=== PATIENT | male | born 2000 | race Caucasian/White ===

== ENCOUNTER 2023-01-22 12:59 | Outpatient (CLI) | payer MEDICAID, SELFPAY ==
[2023-01-22 13:31] LABS: Hematocrit 37.1 % (42.0-52.0); Hemoglobin 12.2 g/dL (14.0-18.0); Mean Corpuscular HGB Conc 32.9 g/dl (32-36); Mean Corpuscular Hemoglobin 29.4 pg (26-34); Mean Corpuscular Volume 89.4 fl (80-100); Mean Platelet Volume 8.9 fl (7.4-10.4); Platelet Count Result 320 k/mm3 (150-375); Red Blood Count 4.15 M/mm3 (4.6-6.20); Red Cell Distribution Width 12.5 % (11.5-14.5); White Blood Count 8.4 K/mm3 (4.5-10.0)
[2023-01-22 13:51] LABS: Iron 23 ug/dL (49-181)
[2023-01-22 13:53] LABS: Alanine Aminotransferase 30 U/L (6-50); Albumin Level 4.3 g/dL (3.5-5.1); Alkaline Phosphatase 73 U/L (38-126); Anion Gap 8 mmol/L (8-16); Aspartate Amino Transferase 30 U/L (17-59); Bilirubin,Total 0.3 mg/dL (0.2-1.3); Blood Urea Nitrogen 9 mg/dL (9-20); Calcium 8.8 mg/dL (8.4-10.2); Carbon Dioxide 29 mmol/L (22-30); Chloride 101 mmol/L (98-107); Estimated Glomerular Filt Rate > 60; Glucose 135 mg/dL (65-110); Potassium 3.9 mmol/L (3.4-5.0); Sodium 138 mmol/L (137-145)
[2023-01-22 13:55] LABS: CRP 2.8 mg/dL (<1.0)
[2023-01-22 13:59] LABS: Percent Iron Saturation 7 % (20-50)
[2023-01-22 14:21] LABS: Hepatitis B Surface Antigen Negative (Negative)
[2023-01-22 14:27] LABS: HAV RESULT Negative (Negative); Hepatitis B Core IgM Result Negative (Negative)
[2023-01-22 14:39] LABS: Hepatitis B Surface Anti Res Negative; Hepatitis C Virus Antibody Negative (Negative)
[2023-01-22 14:39] LABS: Toxigenic C. Diff NEGATIVE (NEGATIVE)
[2023-01-22 14:41] LABS: Erythrocyte Sedimentation Rate 48 mm/hr (0-20)
[2023-01-26 12:24] LABS: NIL 0.01 IU/mL; Quantiferon TB Plus, 1T NEGATIVE (NEGATIVE)
[2023-01-26 13:18] LABS: Hepatitis A Antibody Total Nonreactive (Nonreactive)
[2023-01-26 15:39] LABS: Vitamin D 1,25 (OH)2 Total 52 pg/mL (18-72); Vitamin D2 1,25 (OH)2 <8 pg/mL; Vitamin D3 1,25 (OH)2 52 pg/mL
[2023-01-30 20:32] LABS: Calprotectin, Stool 5620 mcg/g
== END 2023-01-22 13:00 | disposition home or self-care (01) ==
PROVIDERS: PCP Family Medicine; Visit Provider Nurse Practitioner
DX: K51.90 Ulcerative colitis, unspecified, without complications (principal)
CPT/HCPCS: 36415; 80053; 80074; 82652; 82728; 83540; 83550; 83993; 85027; 85652; 86140; 86480; 86706; 86708; 87340; 87493

== ENCOUNTER 2023-05-14 03:08 | Day surgery (SDC) | payer OTHER, SELFPAY ==
[2023-05-05 14:01] VITALS: BMI 22.8
--- NOTE | 2023-05-14 08:13 | WPDANESEPPF ---
Anes - Initial Pre Proc Eval Procedure: Operation Date: 05/14/23 13:15 Proposed Procedures p Colonoscopy - Candido Bhakta MD Date/Time: 05/14/23 08:13 Surgeon: Candido Bhakta MD Pre Op Diagnosis: ulcerative colitis Patient Data Age: 22 Gender: M Height: 1.73 m Weight: 68.2 kg Allergies Allergy/AdvReac Type Severity Reaction Status Date / Time No Known Allergies Allergy Verified 05/06/23 14:47 Home Medications Medication Instructions Recorded Confirmed Type finasteride 1 mg tablet 1 mg PO DAILY 01/11/23 05/06/23 History ferrous gluconate 324 mg (37.5 mg 324 mg PO BID #60 tabs 03/04/23 05/06/23 Rx iron) tablet fluticasone propionate 50 2 spray intranasal DAILY 04/14/23 05/06/23 History mcg/actuation nasal spray,suspension (Children's Flonase Allergy Relief) mesalamine 500 mg capsule,extended 500 mg PO DIRECTED 05/06/23 05/06/23 History release (Pentasa) Patient hx anesthesia problems: none Family hx anesthesia problems: none Results Review: All pre-operative results and documents have been reviewed as part of the pre-operative evaluation. [facility] Past Medical History Medical History Hair loss RONNIE (iron deficiency anemia) Seasonal allergies Ulcerative colitis Family History Family History Father Asthma Diabetes mellitus Depression Heart disease Mother Depression Grandparent Depression Cancer Social History Social History Smoking status: Never smoker Alcohol intake: never Substance use: current Substance use type: marijuana Other substance usage details: smokes daily Lack of Transportation: No Lack of Food: Never True Current Housing: I Have Housing Concerned About Future Housing: No Difficulty Paying Gas/Electric Bills: No Difficulty Paying for Meds: No Currently Unemployed: No Education: Associate Degree Difficulty w/ Childcare or Family Care: No Living arrangements: with roommate(s) Occupation/Education: student 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[employer] Gender identity (if verbalized by the patient): Male Spiritual care concerns: No Agree to blood products: Yes Anes - Eval Final PreProcedure Day of Procedure 05/14/23 08:13 Patient weight: normal Heart: regular rate and rhythm Lungs: clear to auscultation and normal air movement Airway: Mallampati scale class II Neurological: alert and oriented Last oral intake: >/= 8 hours ASA classification: II Emergent: no Anesthetic plan: proceed Anesthesia type and monitoring: general GIVS Results Review: All pre-operative results and documents have been reviewed as part of the pre-operative evaluation. Informed Consent: The patient's anesthetic plan and its attendant risks and benefits were discussed with the patient/family/POA. Questions were solicited and answers provided to the satisfaction of the patient/family/POA.
[2023-05-14 10:36] VITALS: BP 116/96; PULSE 110; RESP 18; TEMP 36.3; O2SAT 100; BMI 21.5
[2023-05-14] MEDS: LACTATED RINGERS 1,000 ML 150 ML IV CONT (10:42)
--- NOTE | 2023-05-14 11:13 | PM.HPGS ---
History of Present Illness History of Present Illness Consent: Risks, benefits, and alternatives have been discussed and questions answered. Patient agrees to proceed with procedure. Chief complaint: ulcerative colitis Narrative: Nahid Brice is a 22 year old male diagnosed with left sided UC 2021, treated with steroids and canasa supp, now only on pentasa and doing better. Review of Systems Constitutional: Constitutional: Denies headache(s) and Denies weakness Eyes: Eyes: Denies blurry vision ENT: Reports Normal hearing present, Denies headache(s) and Denies neck pain Cardiovascular: Cardiovascular: Denies chest pain and Denies dyspnea Respiratory: Respiratory: Denies dyspnea Gastrointestinal: Gastrointestinal: Reports no additional gastrointestinal complaints Genitourinary: Genitourinary: Denies dysuria Musculoskeletal: Musculoskeletal: Denies neck pain Integumentary/Breasts: Skin/Breast: Denies dry skin Neurologic: Reports Normal hearing present, Denies headache(s) and Denies weakness Psychiatric: Psychiatric: Denies anxiety Endocrine: Endocrine: Denies change in body appearance Hematologic/Lymphatic: Hematologic/Lymphatic: Denies easy bleeding Allergic/Immunologic: Allergic/Immunologic: Denies urticaria PMFSH Past Medical History Medical History Hair loss RONNIE (iron deficiency anemia) Seasonal allergies Ulcerative colitis Family History Family History Father Asthma Diabetes mellitus Depression Heart disease Mother Depression Grandparent Depression Cancer Social History Social History Smoking status: Never smoker Alcohol intake: never Substance use: current Substance use type: marijuana Other substance usage details: smokes daily Lack of Transportation: No Lack of Food: Never True Current Housing: I Have Housing Concerned About Future Housing: No Difficulty Paying Gas/Electric Bills: No Difficulty Paying for Meds: No Currently Unemployed: No Education: Associate Degree Difficulty w/ Childcare or Family Care: No Living arrangements: with roommate(s) Occupation/Education: student 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 Gender identity (if verbalized by the patient): Male Spiritual care concerns: No Agree to blood products: Yes Meds Home Medications and Allergies Home Medications Medication Instructions Recorded Confirmed Type finasteride 1 mg tablet 1 mg PO DAILY 01/11/23 05/14/23 History ferrous gluconate 324 mg (37.5 mg 324 mg PO BID #60 tabs 03/04/23 05/14/23 Rx iron) tablet fluticasone propionate 50 2 spray intranasal DAILY 04/14/23 05/14/23 History mcg/actuation nasal spray,suspension (Children's Flonase Allergy Relief) mesalamine 500 mg capsule,extended 500 mg PO DIRECTED 05/06/23 05/14/23 History release (Pentasa) Allergies Allergy/AdvReac Type Severity Reaction Status Date / Time No Known Allergies Allergy Verified 05/14/23 10:34 Vital Signs Vital Signs - 24 hr 05/14/23 10:36 Temperature 97.4 F L Pulse Rate 110 H Respiratory Rate 18 Blood Pressure 116/96 H Pulse Oximetry 100 Oxygen Delivery Room Air Exam Const: General: comfortable and no acute distress HENMT: Face/Nose/Sinus: Normal nares present Eyes: General: appearance normal, both eyes and all related structures Neck: Neck: no JVD Resp: Auscultation: clear to auscultation bilaterally Cardio: Rate: regular rate Rhythm: regular rhythm GI: Inspection: non-distended GI Palp: Yes Soft to palpation Skin: General skin exam: normal color Neuro: General: gait normal Speech: normal speech Extrem: General: normal to inspection Psych: Mental Status: mental status grossly normal Assessment and Plan Assessment and p
[2023-05-14 11:33] VITALS: BP 99/61; PULSE 104; RESP 24; O2SAT 98
[2023-05-14 11:43] VITALS: BP 104/62; PULSE 92; RESP 21; O2SAT 98
[2023-05-14 11:53] VITALS: BP 113/72; PULSE 87; RESP 19; O2SAT 99
== END 2023-05-14 12:07 | disposition home or self-care (01) ==
PROVIDERS: PCP Family Medicine; Visit Provider Internal Medicine Gastroenterology
PROC: 0DJD8ZZ Inspection of Lower Intestinal Tract, Via Natural or Artificial Opening Endoscopic (ICD-10-PCS; CPT 45378; principal; 2023-05-14 13:15)
DX: K51.90 Ulcerative colitis, unspecified, without complications (principal); K64.8 Other hemorrhoids; D50.9 Iron deficiency anemia, unspecified; F12.90 Cannabis use, unspecified, uncomplicated
CPT/HCPCS: 45380; 88305; J2704; J7120

== ENCOUNTER 2023-05-17 12:47 | Outpatient (CLI) | payer OTHER, SELFPAY ==
[2023-05-17 13:23] LABS: Hematocrit 42.9 % (42.0-52.0); Hemoglobin 14.3 g/dL (14.0-18.0); Mean Corpuscular HGB Conc 33.3 g/dl (32-36); Mean Corpuscular Hemoglobin 29.1 pg (26-34); Mean Corpuscular Volume 87.4 fl (80-100); Mean Platelet Volume 9.5 fl (7.4-10.4); Platelet Count Result 245 k/mm3 (150-375); Red Blood Count 4.91 M/mm3 (4.6-6.20); Red Cell Distribution Width 13.6 % (11.5-14.5)
[2023-05-17 13:37] LABS: Iron 124 ug/dL (49-181)
[2023-05-17 13:41] LABS: CRP 0.5 mg/dL (<1.0)
[2023-05-17 13:46] LABS: Percent Iron Saturation 36 % (20-50)
[2023-05-17 14:07] LABS: Erythrocyte Sedimentation Rate 17 mm/hr (0-20)
== END 2023-05-17 12:48 | disposition home or self-care (01) ==
PROVIDERS: PCP Family Medicine; Visit Provider Nurse Practitioner Family
DX: K51.90 Ulcerative colitis, unspecified, without complications (principal); D50.9 Iron deficiency anemia, unspecified
CPT/HCPCS: 36415; 82728; 83540; 83550; 85027; 85652; 86140

== ENCOUNTER 2023-11-08 12:53 | Emergency (ER) | payer OTHER, SELFPAY ==
[2023-11-08] VITALS (7 sets, daily range): BP systolic 120–135; BP diastolic 69–93; PULSE 71–102; RESP 14–17; TEMP 36.4; O2SAT 97–100
--- NOTE | ~2023-11-08 | CT_ITS ---
EXAMINATION: CT abdomen pelvis w con INDICATION: Loose bloody stools, abdominal pain TECHNIQUE: Computed tomographic images of the abdomen and pelvis were obtained after the administrati on of 100 cc of Omnipaque 350 intravenous contrast. The dose-length product (DLP) was 304.22 mGy-cm. Automated exposure control and iterative reconstruction technique were employed. COMPARISON: None available FINDINGS: The lung bases are clear. The heart size is normal. The liver, spleen, pancreas, gallbladde r, and adrenal glands are normal. The kidneys are unremarkable. There is mild right lower quadrant ly mphadenopathy. No free intraperitoneal gas or evidence of bowel obstruction. The appendix is normal. There is mild wall thickening of the sigmoid colon. The visualized osseous structures are unremarkabl e. IMPRESSION: 1. Mild wall thickening of the sigmoid colon which could be due to incomplete distention or less like ly mild colitis. 2. Mild right lower quadrant lymphadenopathy, likely reactive. Reviewed, dictated and finalized at location B. ERCIAL FIELD INSPECTOR IMPRESSION: 1. Mild wall thickening of the sigmoid colon which could be due to incomplete d istention or less likely mild colitis. 2. Mild right lower quadrant lymphadenopathy, likely reactive.
[2023-11-08 13:15] LABS: Basophils Absolute Auto 0.1 K/mm3 (0.0-0.1); Basophils Percent Auto 0.7 % (0.2-1.2); Eosinophils Absolute Auto 0.4 K/mm3 (0-0.3); Eosinophils Percent Auto 5.7 % (0-4.4); Hematocrit 43.7 % (42.0-52.0); Hemoglobin 14.4 g/dL (14.0-18.0); Immature Granulocyte Absolute 0.01 K/mm3 (0.00-0.031); Immature Granulocyte Percent A 0.1 % (0-0.5); Lymphocytes Absolute Auto 2.33 K/mm3 (0.9-3.2); Lymphocytes Percent Auto 32.2 % (18.3-44.2); Mean Corpuscular Hemoglobin 29.5 pg (26-34); Mean Corpuscular Volume 89.5 fl (80-100); Mean Platelet Volume 9.6 fl (7.4-10.4); Monocytes Absolute Auto 1.4 K/mm3 (0.1-0.6); Monocytes Percent Auto 19.8 % (2.6-8.5); Neutrophils Percent Auto 41.5 % (45.5-73.1); Platelet Count Result 224 k/mm3 (150-375); Red Blood Count 4.88 M/mm3 (4.6-6.20); Red Cell Distribution Width 12.9 % (11.5-14.5); White Blood Count 7.2 K/mm3 (4.5-10.0)
[2023-11-08 13:23] LABS: Alanine Aminotransferase 20 U/L (6-50); Albumin Level 4.7 g/dL (3.5-5.1); Alkaline Phosphatase 71 U/L (38-126); Anion Gap 8 mmol/L (8-16); Aspartate Amino Transferase 21 U/L (17-59); Bilirubin,Total 0.6 mg/dL (0.2-1.3); Blood Urea Nitrogen 11 mg/dL (9-20); Calcium 9.4 mg/dL (8.4-10.2); Carbon Dioxide 25 mmol/L (22-30); Chloride 106 mmol/L (98-107); Estimated CRCL calculation 106 ml/min; Estimated Glomerular Filt Rate > 60; Glucose 90 mg/dL (65-110); Potassium 4.1 mmol/L (3.4-5.0); Sodium 139 mmol/L (137-145)
[2023-11-08 13:25] LABS: Prothrombin Time 13.7 Seconds (11.1-14.7)
[2023-11-08 13:26] LABS: Partial Thromboplastin Time 30.6 SECONDS (22.3-36.8)
--- NOTE | 2023-11-08 13:34 | ED.GIBLEED ---
HPI - GI Bleed General Chief complaint: GI Bleed Stated complaint: BLOOD IN STOOL Time Seen by Provider: 11/08/23 13:23 Source: patient Mode of arrival: ambulatory Limitations: no limitations History of Present Illness HPI Narrative: This is a 22 year old male that presents to the ER for abdominal pain and diarrhea. Ongoing over the last couple of days. Reports seeing blood in the stool since yesterday. History of UC, was concerned he was having a flare. His GI doctor is Dr. Grover. Denies fevers or vomiting. Related Data Home Medications Medication Instructions Recorded Confirmed finasteride 1 mg tablet 1 mg PO DAILY 01/11/23 05/18/23 fluticasone propionate 50 2 spray intranasal DAILY 04/14/23 05/18/23 mcg/actuation nasal spray,suspension (Children's Flonase Allergy Relief) Allergies Allergy/AdvReac Type Severity Reaction Status Date / Time No Known Allergies Allergy Verified 11/08/23 13:24 Review of Systems Review of Systems: CONSTITUTIONAL: Denies fever GASTROINTESTINAL: Reports abdominal pain, and diarrhea. GENITOURINARY: Denies dysuria All systems reviewed & are unremarkable except as noted in HPI and below PMFSH Past Medical History Medical History Hair loss RONNIE (iron deficiency anemia) Seasonal allergies Ulcerative colitis Family History Family History Father Asthma Diabetes mellitus Depression Heart disease Mother Depression Grandparent Depression Cancer Social History Social History Smoking status: Never smoker Alcohol intake: never Substance use: current Substance use type: marijuana Other substance usage details: smokes daily Lack of Transportation: No Lack of Food: Never True Current Housing: I Have Housing Concerned About Future Housing: No Difficulty Paying Gas/Electric Bills: No Difficulty Paying for Meds: No Currently Unemployed: No Education: Associate Degree Difficulty w/ Childcare or Family Care: No Living arrangements: with roommate(s) Occupation/Education: student 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 HEAD: Normocephalic, atraumatic. EYES: EOMI. CHEST: Clear to auscultation. No respiratory distress. No wheezes rales or rhonchi HEART: Regular rate and rhythm. No murmur heard. Normal peripheral pulses. ABDOMEN: Soft, nondistended, normal active bowel sounds. Mild tenderness to palpation throughout the abdomen, without guarding EXTREMITIES: Normal range of motion. No edema. SKIN: Warm, dry, no rash. NEURO: No focal deficits. Alert and oriented x3. PSYCH: Normal mood and affect Course Course Emergency Course: Patient updated on workup and agrees with plan of care Consultations Consultation #1: Spoke with Dr. Grover about patient and workup who recommends Flagyl for 5 days along with Prednisone taper over the next couple of weeks. Date: 11/08/23 Vital Signs Vital signs: Vital Signs Temperature 97.6 F 11/08/23 12:56 Pulse Rate 87 11/08/23 12:56 Respiratory Rate 16 11/08/23 12:56 Blood Pressure 131/74 11/08/23 12:56 Pulse Oximetry 100 11/08/23 12:56 Temperature 97.6 F 11/08/23 12:56 Pulse Rate 71 11/08/23 14:24 Respiratory Rate 14 11/08/23 14:24 Blood Pressure 120/76 11/08/23 14:24 Pulse Oximetry 99 11/08/23 14:24 MDM - GI Bleed MDM Narrative Medical decision making narrative: Patient presents to the emergency department for abdominal pain and bloody diarrhea. History of ulcerative colitis. He is afebrile and nontoxic appearing. Cbc without leukocytosis. Metabol
[2023-11-08] MEDS: SODIUM CHLORIDE 0.9% IV 1,000 ML 999 ML IV CONT (13:48)
--- NOTE | 2023-11-08 14:25 | PC.NURSE ---
Pt to CT scan via stretcher at this time.
== END 2023-11-08 15:55 | disposition home or self-care (01) ==
PROVIDERS: Emergency Medicine; Emergency Provider Physician Assistant; PCP Family Medicine
DX: K52.9 Noninfective gastroenteritis and colitis, unspecified (principal)
CPT/HCPCS: 36415; 74177; 80053; 85025; 85610; 85730; 86850; 86900; 86901; 96360; 99284; J7030; Q9967

== ENCOUNTER 2023-11-12 09:01 | Emergency (ER) | payer OTHER, SELFPAY ==
[2023-11-12 09:03] VITALS: BP 146/87; PULSE 95; RESP 18; TEMP 36.4; O2SAT 100
[2023-11-12 09:20] VITALS: BP 129/81; PULSE 81; RESP 11; O2SAT 98
--- NOTE | 2023-11-12 09:38 | ED.GENADULT ---
HPI - General Adult General Chief complaint: GI Bleed Stated complaint: diarrhea and blood in stool Time Seen by Provider: 11/12/23 09:08 Source: patient Mode of arrival: ambulatory Limitations: no limitations History of Present Illness HPI narrative: this is a 22-year-old male with PMH of UC presents to the chief complaint diarrhea and rectal bleeding x5 days. Reports bright red blood per rectum. Reports he was seen here at the initial onset but symptoms have gradually worsened since then as he is having a more frequency of diarrhea and more frequency of bloody stools. reports having 8-9 bouts of diarrhea per day. Denies melena or dark tarry stools. Denies abdominal pain, vomiting, nausea, fevers, chills, urinary symptoms, chest pain, shortness of breath. Follows with Dr. Bhakta and has been taking his regular Humira, sulfasalazine. He was prescribed metronidazole, prednisone taper on Wednesday and has been taking those as prescribed. Related Data Home Medications Medication Instructions Recorded Confirmed finasteride 1 mg tablet 1 mg PO DAILY 01/11/23 05/18/23 fluticasone propionate 50 2 spray intranasal DAILY 04/14/23 05/18/23 mcg/actuation nasal spray,suspension (Children's Flonase Allergy Relief) Allergies Allergy/AdvReac Type Severity Reaction Status Date / Time No Known Allergies Allergy Verified 11/12/23 09:18 Review of Systems Review of Systems: All systems as dictated in [facility] Past Medical History Medical History Hair loss RONNIE (iron deficiency anemia) Seasonal allergies Ulcerative colitis Family History Family History Father Asthma Diabetes mellitus Depression Heart disease Mother Depression Grandparent Depression Cancer Social History Social History Smoking status: Never smoker Alcohol intake: never Substance use: current Substance use type: marijuana Other substance usage details: smokes daily Lack of Transportation: No Lack of Food: Never True Current Housing: I Have Housing Concerned About Future Housing: No Difficulty Paying Gas/Electric Bills: No Difficulty Paying for Meds: No Currently Unemployed: No Education: Associate Degree Difficulty w/ Childcare or Family Care: No Living arrangements: with roommate(s) Occupation/Education: student 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 HEAD: Normocephalic, atraumatic. EYES: PERRLA and EOMI. ENT: Nares clear, no rhinorrhea or epistaxis. Mucous membranes moist. Oropharynx without tonsillar hypertrophy exudate or other lesions. NECK: Supple. No adenopathy or masses. CHEST: No respiratory distress. Clear to auscultation. No wheezes rales or rhonchi HEART: Regular rate and rhythm. No murmur heard. Normal peripheral pulses. ABDOMEN: Soft, nontender, nondistended, normal active bowel sounds. MSK: Normal range of motion. No edema. SKIN: Warm, dry, no rash. NEURO: Alert and oriented x3. No focal deficits. PSYCH: Normal mood and affect. Course Vital Signs Vital signs: Vital Signs Temperature 97.6 F 11/12/23 09:03 Pulse Rate 95 11/12/23 09:03 Respiratory Rate 18 11/12/23 09:03 Blood Pressure 146/87 H 11/12/23 09:03 Pulse Oximetry 100 11/12/23 09:03 Oxygen Delivery Room Air 11/12/23 09:03 Temperature 97.6 F 11/12/23 09:03 Pulse Rate 76 11/12/23 10:43 Respiratory Rate 14 11/12/23 10:43 Blood Pressure 130/82 11/12/23 10:43 Pulse Oximetry 99 11/12/23 10:43 Oxygen Delivery Room Air 11/12/23 09:03 Medical Decision Andreas
[2023-11-12 10:00] VITALS: BP 114/79; PULSE 76; RESP 13; O2SAT 99
[2023-11-12 10:07] LABS: Basophils Absolute Auto 0.1 K/mm3 (0.0-0.1); Basophils Percent Auto 0.6 % (0.2-1.2); Eosinophils Absolute Auto 0.2 K/mm3 (0-0.3); Eosinophils Percent Auto 2.4 % (0-4.4); Hematocrit 42.3 % (42.0-52.0); Hemoglobin 14.3 g/dL (14.0-18.0); Immature Granulocyte Absolute 0.04 K/mm3 (0.00-0.031); Immature Granulocyte Percent A 0.5 % (0-0.5); Lymphocytes Absolute Auto 2.59 K/mm3 (0.9-3.2); Lymphocytes Percent Auto 29.9 % (18.3-44.2); Mean Corpuscular HGB Conc 33.8 g/dl (32-36); Mean Corpuscular Hemoglobin 29.7 pg (26-34); Mean Corpuscular Volume 87.8 fl (80-100); Mean Platelet Volume 9.3 fl (7.4-10.4); Monocytes Absolute Auto 1.7 K/mm3 (0.1-0.6); Monocytes Percent Auto 19.6 % (2.6-8.5); Neutrophils Absolute Auto 4.1 K/mm3 (1.3-6.7); Platelet Count Result 246 k/mm3 (150-375); Red Blood Count 4.82 M/mm3 (4.6-6.20); Red Cell Distribution Width 12.8 % (11.5-14.5); White Blood Count 8.7 K/mm3 (4.5-10.0)
[2023-11-12 10:18] LABS: Prothrombin Time 14.1 Seconds (11.1-14.7)
[2023-11-12 10:19] LABS: Partial Thromboplastin Time 27.8 SECONDS (22.3-36.8)
[2023-11-12 10:20] LABS: Alanine Aminotransferase 20 U/L (6-50); Albumin Level 4.4 g/dL (3.5-5.1); Alkaline Phosphatase 56 U/L (38-126); Anion Gap 9 mmol/L (8-16); Aspartate Amino Transferase 26 U/L (17-59); Bilirubin,Total 0.3 mg/dL (0.2-1.3); Blood Urea Nitrogen 16 mg/dL (9-20); Calcium 9.3 mg/dL (8.4-10.2); Carbon Dioxide 27 mmol/L (22-30); Chloride 102 mmol/L (98-107); Estimated CRCL calculation 109 ml/min; Estimated Glomerular Filt Rate > 60; Glucose 97 mg/dL (65-110); Lactic Acid Reflex 1.4 mmol/L (0.7-2.0); Lipase 63 U/L (23-300); Potassium 3.5 mmol/L (3.4-5.0); Sodium 138 mmol/L (137-145)
[2023-11-12 10:24] VITALS: BP 140/86; PULSE 75; RESP 15; O2SAT 100
[2023-11-12 10:43] VITALS: BP 130/82; PULSE 76; RESP 14; O2SAT 99
[2023-11-12] MEDS: methylPREDNISolone SOD SUCC 40 MG VIAL IV PUSH (10:43)
== END 2023-11-12 10:52 | disposition home or self-care (01) ==
PROVIDERS: Emergency Provider Physician Assistant; PCP Family Medicine
DX: K51.90 Ulcerative colitis, unspecified, without complications (principal)
CPT/HCPCS: 36415; 80053; 83605; 83690; 85025; 85610; 85730; 96374; 99284; J2920

== ENCOUNTER 2024-07-14 13:56 | Outpatient (CLI) | payer BC, SELFPAY ==
[2024-07-14 14:33] LABS: Hematocrit 43.3 % (42.0-52.0); Hemoglobin 14.5 g/dL (14.0-18.0); Mean Corpuscular HGB Conc 33.5 g/dl (32-36); Mean Corpuscular Volume 92.5 fl (80-100); Platelet Count Result 324 k/mm3 (150-375); Red Blood Count 4.68 M/mm3 (4.6-6.20); Red Cell Distribution Width 13.2 % (11.5-14.5); White Blood Count 8.8 K/mm3 (4.5-10.0)
[2024-07-14 14:45] LABS: Alanine Aminotransferase 28 U/L (6-50); Albumin Level 4.6 g/dL (3.5-5.1); Alkaline Phosphatase 42 U/L (38-126); Anion Gap 8 mmol/L (4-12); Aspartate Amino Transferase 28 U/L (17-59); Bilirubin,Total 0.2 mg/dL (0.2-1.3); Blood Urea Nitrogen 13 mg/dL (9-20); Calcium 9.1 mg/dL (8.4-10.2); Carbon Dioxide 31 mmol/L (22-30); Chloride 98 mmol/L (98-107); Cholesterol 189 mg/dL (0-200); Estimated Glomerular Filt Rate > 60; Glucose 94 mg/dL (65-110); HDL Direct 56 mg/dL; Sodium 137 mmol/L (137-145); Triglycerides 157 mg/dL (<150)
[2024-07-14 14:58] LABS: LDL Cholesterol Direct 105 mg/dL
[2024-07-14 15:16] LABS: Thyroid Stimulating Hormone 0.514 uIU/mL (0.465-4.680)
[2024-07-14 15:34] LABS: Iron 69 ug/dL (49-181)
[2024-07-14 15:43] LABS: Percent Iron Saturation 22 % (20-50)
[2024-07-14 16:46] LABS: Vitamin D 25 Hydroxy < 12.8 ng/mL
[2024-07-20 11:19] LABS: NIL 0.03 IU/mL; Quantiferon TB Plus, 1T NEGATIVE (NEGATIVE); TB1-NIL <0.00 IU/mL; TB2-NIL <0.00 IU/mL
== END 2024-07-14 13:57 | disposition home or self-care (01) ==
PROVIDERS: Nurse Practitioner; PCP Family Medicine; Visit Provider Nurse Practitioner
DX: Z00.00 Encounter for general adult medical examination without abnormal findings (principal); E55.9 Vitamin D deficiency, unspecified; D50.9 Iron deficiency anemia, unspecified; K51.90 Ulcerative colitis, unspecified, without complications
CPT/HCPCS: 36415; 80053; 80061; 82306; 83540; 83550; 84443; 85027; 86480

== ENCOUNTER 2024-12-08 01:18 | Day surgery (SDC) | payer BC, SELFPAY ==
[2024-11-16 13:53] VITALS: BMI 27.4
[2024-12-08 06:39] VITALS: BP 126/83; PULSE 90; RESP 16; TEMP 36.6; O2SAT 97
[2024-12-08] MEDS: LACTATED RINGERS 1,000 ML 150 ML IV CONT (06:45)
--- NOTE | 2024-12-08 07:18 | P.HP_ITS ---
H&P: [facility] History of Present Illness Date/Time: 12/08/24 07:18 Chief Complaint: exacerbated ulcerative colitis Narrative: the patient has a 2 year history of ulcerative colitis, having failed mesalamine, sulfasalazine and Humira. He is currently receiving prednisone 20 mg once a day, has recently started tofacitinib loading dose. He states he is getting better, with less diarrhea but still having an average of 5 stools once a day. He is here for colonoscopy. Review of Systems Review of Systems: All systems reviewed & are unremarkable except as noted in HPI and below PMFSH Past Medical History Medical History Seasonal allergies RONNIE (iron deficiency anemia) Hair loss Ulcerative colitis Family History Family History Father Asthma Diabetes mellitus Depression Heart disease Mother Depression Grandparent Depression Cancer Social History Social History Smoking status: Never smoker Alcohol intake: never Substance use: current Substance use type: marijuana Other substance usage details: smokes daily Lack of Transportation: No Lack of Food: Never True Current Housing: I Have Housing Concerned About Future Housing: No Difficulty Paying Gas/Electric Bills: No Difficulty Paying for Meds: No Currently Unemployed: No Education: Associate Degree Difficulty w/ Childcare or Family Care: No Living arrangements: with roommate(s) Occupation/Education: student 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 Gender identity (if verbalized by the patient): Male Spiritual care concerns: No Agree to blood products: Yes Meds Home Medications and Allergies Home Medications ?Medication ?Instructions ?Recorded ?Confirmed ?Type fluticasone propionate 50 2 spray intranasal DAILY 04/14/23 12/08/24 History mcg/actuation nasal spray,suspension (Children's Flonase Allergy Relief) cholecalciferol (vitamin D3) 25 25 mcg PO DAILY #90 caps 07/17/24 12/08/24 Rx mcg (1,000 unit) capsule dicyclomine 10 mg capsule 10 - 20 mg (1 - 2 x 10 mg) PO QID 11/14/24 12/08/24 Rx PRN abdominal pain #120 caps tofacitinib 10 mg tablet (Xeljanz) 10 mg PO BID 8 weeks #112 tabs 11/14/24 12/08/24 Rx sulfasalazine 500 mg 1,000 mg PO BID 11/16/24 12/08/24 History tablet,delayed release folic acid 1 mg tablet See Rx Instructions .Route 12/01/24 12/08/24 Rx .COMPLEX #30 tabs Allergies Allergy/AdvReac Type Severity Reaction Status Date / Time No Known Allergies Allergy Verified 12/08/24 06:31 Vital Signs Vital Signs - 24 hr 12/08/24 06:39 Temperature 97.8 F Pulse Rate 90 Respiratory Rate 16 Blood Pressure 126/83 Pulse Oximetry 97 Oxygen Delivery Room Air Exam Narrative: GENERAL: Well-appearing, well-nourished, and in no acute distress. HEAD: Normocephalic, atraumatic. EYES: PERRLA and EOMI. ENT: Nares clear, no rhinorrhea or epistaxis. Mucous membranes moist. Oropharynx without tonsillar hypertrophy exudate or other lesions. NECK: Supple. No adenopathy or masses. CHEST: No respiratory distress. Clear to auscultation. No wheezes rales or rhonchi HEART: Regular rate and rhythm. No murmur heard. Normal peripheral pulses. ABDOMEN: Soft, nontender, nondistended, normal active bowel sounds. MSK: Normal range of motion. No edema. SKIN: Warm, dry, no rash. NEURO: Alert and oriented x3. No focal deficits. PSYCH: Normal mood and affect. Assessment and Plan Assessment and plan (1) Ulcerative colitis: Qualifiers: Digestive disease complication type: with rectal bleeding Code(s): K51.90 - Ulcerative colitis, unspecified, without complications Status: Acute Assessment and Plan: The patient is deemed a good candidate for the procedure. Consent signed. Will proceed.
--- NOTE | 2024-12-08 07:27 | WPDANESEPPF ---
Anes - Initial Pre Proc Eval Procedure: Operation Date: 12/08/24 07:30 Proposed Procedures p Colonoscopy - Tho Bejarano MD Date/Time: 12/08/24 07:27 Surgeon: Tho Bejarano MD Pre Op Diagnosis: ulcerative colitis w/o complications, anemia, Patient Data Age: 24 Gender: M Height: 1.73 m Weight: 79.5 kg Last Vital Signs Temp 97.8 F 12/08/24 06:39 Pulse 90 12/08/24 06:39 Resp 16 12/08/24 06:39 BP 126/83 12/08/24 06:39 Pulse Ox 97 12/08/24 06:39 O2 Del Method Room Air 12/08/24 06:39 Allergies Allergy/AdvReac Type Severity Reaction Status Date / Time No Known Allergies Allergy Verified 12/08/24 06:31 Home Medications ?Medication ?Instructions ?Recorded ?Confirmed ?Type fluticasone propionate 50 2 spray intranasal DAILY 04/14/23 12/08/24 History mcg/actuation nasal spray,suspension (Children's Flonase Allergy Relief) cholecalciferol (vitamin D3) 25 25 mcg PO DAILY #90 caps 07/17/24 12/08/24 Rx mcg (1,000 unit) capsule dicyclomine 10 mg capsule 10 - 20 mg (1 - 2 x 10 mg) PO QID 11/14/24 12/08/24 Rx PRN abdominal pain #120 caps tofacitinib 10 mg tablet (Xeljanz) 10 mg PO BID 8 weeks #112 tabs 11/14/24 12/08/24 Rx sulfasalazine 500 mg 1,000 mg PO BID 11/16/24 12/08/24 History tablet,delayed release folic acid 1 mg tablet See Rx Instructions .Route 12/01/24 12/08/24 Rx .COMPLEX #30 tabs Patient hx anesthesia problems: none Family hx anesthesia problems: none Results Review: All pre-operative results and documents have been reviewed as part of the pre-operative evaluation. [facility] Past Medical History Medical History Seasonal allergies RONNIE (iron deficiency anemia) Hair loss Ulcerative colitis Family History Family History Father Asthma Diabetes mellitus Depression Heart disease Mother Depression Grandparent Depression Cancer Social History Social History Smoking status: Never smoker Alcohol intake: never Substance use: current Substance use type: marijuana Other substance usage details: smokes daily Lack of Transportation: No Lack of Food: Never True Current Housing: I Have Housing Concerned About Future Housing: No Difficulty Paying Gas/Electric Bills: No Difficulty Paying for Meds: No Currently Unemployed: No Education: Associate Degree Difficulty w/ Childcare or Family Care: No Living arrangements: with roommate(s) Occupation/Education: 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 Informed Consent: The patient's anesthetic plan and its attendant risks and benefits were discussed with the patient/family/POA. Questions were solicited and answers provided to the satisfaction of the patient/family/POA.
[2024-12-08 07:51] VITALS: BP 117/75; PULSE 80; RESP 18; O2SAT 97
[2024-12-08 08:01] VITALS: BP 122/90; PULSE 71; RESP 19; O2SAT 100
[2024-12-08 08:11] VITALS: BP 135/91; PULSE 70; RESP 12; O2SAT 98
== END 2024-12-08 08:50 | disposition home or self-care (01) ==
PROVIDERS: PCP Family Medicine; Referring Provider Nurse Practitioner; Visit Provider Internal Medicine Gastroenterology
PROC: 0DJD8ZZ Inspection of Lower Intestinal Tract, Via Natural or Artificial Opening Endoscopic (ICD-10-PCS; CPT 45378; principal; 2024-12-08 07:30)
DX: K51.90 Ulcerative colitis, unspecified, without complications (principal); D50.9 Iron deficiency anemia, unspecified; F12.90 Cannabis use, unspecified, uncomplicated; Z87.19 Personal history of other diseases of the digestive system; Z80.9 Family history of malignant neoplasm, unspecified; Z82.49 Family history of ischemic heart disease and other diseases of the circulatory system
CPT/HCPCS: 45380; 88305; J2003; J2704; J7120